=== PATIENT | male | born 1965 | race African-American/Black ===

== ENCOUNTER 2016-03-30 10:46 | Inpatient (IN) | payer OTHER ==
[2016-03-30 11:24] VITALS: BMI 26.4
--- NOTE | 2016-03-30 12:40 | HP ---
COWS - Scale Resting Pulse: 0= [place] 80 or Below Sweatin=Flushed/Facial Moisture Restless Observation: 3= Extraneous Movement Pupil Size: 2= Moderately Dilated Bone or Joint Aches: 2= Severe Diffuse Aches Runny Nose/ Eye Tearin= Runny Nose/Eyes GI Upset > 30mins: 3= Vomiting/Diarrhea Tremor Observation: 2= Slight Tremor Visible Yawning Observation: 2= >3x During Session Anxiety or Irritability: 2=Irritable/Anxious Goose Flesh Skin: 0=Smooth Skin COWS Score: 20 CIWA Score - CIWA Score Nausea/Vomitin Muscle Tremors: 3 Anxiety: 3 Agitation: 3 Paroxysmal Sweats: 2 Orientation: 0-Oriented Tacttile Disturbances: 2-Mild Itch/Numbness/Burn Auditory Disturbances: 2-Mild Harshness/Frighten Visual Disturbances: 2-Mild Sensitivity Headache: 2-Mild CIWA-Ar Total Score: 22 Admission ROS BHS - HPI Chief Complaint: i need help to stop using heroin and alcohol Allergies/Adverse Reactions: Allergies Allergy/AdvReac Type Severity Reaction Status Date / Time No Known Allergies Allergy Verified 03/30/16 11:58 History of Present Illness: this 50 years old male with heroin and alcohol dependence,withdrawal symptom, last detox 03/06 [facility] not completed htn non compliance type 2 dm no med nicotine dependence longest period of sobriety 5 years Exam Limitations: No Limitations - Ebola screening Have you been sick,other than usual withdrawal symptoms: No - Review of Systems Constitutional: Diaphoresis, Loss of Appetite, Malaise, Night Sweats, Changes in sleep, Weakness, Unintentional Wgt. Loss EENT: reports: Tearing, Nose Congestion Respiratory: reports: No Symptoms reported Cardiac: reports: No Symptoms Reported GI: reports: Diarrhea, Nausea, Vomiting, Abdominal cramping : reports: No Symptoms Reported Musculoskeletal: reports: Back Pain, Joint Pain, Muscle Pain, Joint Stiffness Integumentary: reports: Dryness Neuro: reports: Headache, Tremors Endocrine: reports: No Symptoms Reported Hematology: reports: No Symptoms Reported Psychiatric: reports: No Sypmtoms Reported Patient History - Patient Medical History Hx Anemia: No Hx Asthma: No Hx Chronic Obstructive Pulmonary Disease (COPD): No Hx Cancer: No Hx Cardiac Disorders: No Hx Congestive Heart Failure: No Hx Hypertension: Yes (non compliance) Hx Hypercholesterolemia: No Hx Pacemaker: No HX Cerebrovascular Accident: No Hx Seizures: No Hx Dementia: No Hx Diabetes: Yes ([id number]) Hx Gastrointestinal Disorders: No Hx Liver Disease: No Hx Genitourinary Disorders: No Hx Sexually Transmitted Disorders: No Hx Renal Disease (ESRD): No Hx Thyroid Disease: No Hx Human Immunodeficiency Virus (HIV): No Hx Hepatitis C: Yes (no treatment) Hx Depression: No Hx Suicide Attempt: No Hx Bipolar Disorder: No Hx Schizophrenia: No Other Medical History: no suicidal,no homicidal,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 - Patient Surgical History Past Surgical History: Yes Hx Neurologic Surgery: No Hx Cataract Extraction: No Hx Cardiac Surgery: No Hx Lung Surgery: No Hx Breast Surgery: No Hx Breast Biopsy: No Hx Abdominal Surgery: No Hx Appendectomy: No Hx Cholecystectomy: No Hx Genitourinary Surgery: No Hx Section: No Hx Orthopedic Surgery: Yes (left hip replacement in 1991 and 2011) Anesthesia Reaction: No - PPD History Previous Implant?: Yes Documented Results: Negative w/proof Implanted On Prior [facility] Admission?: Yes Date: 08/07/12 Results: 0 MM PPD to be Administered?: Yes - Smoking Cessation Smoking history: Current every day smoker Have you smoked in the past 12 months: Yes Aproximately how many cigarettes per day: 6 Cigars Per Day: 0 Hx Chewing Tobacco Use: No Initiated information on smoking cessation: Yes 'Breaking Loose' booklet given: 03/30/16 - Substance & Tx. History Hx Alcohol Use: Yes Hx Substance Use: Yes Substance Use Type: Alcohol, Heroin Hx Substance Use Treatment: Yes ([facility] 03/06 not completed) - Substances Abused Alcohol Route: Oral Frequency: 3-6 times per week Amount used: Remme Cesar(1 pint) Age of first use: 17 Date of Last Use: 03/29/16 Heroin Route: Inhalation Frequency: Daily Amount used: 10 -15 bags Age of first use: 17 Date of Last Use: 03/28/16 Cocaine Route: Smoking Frequency: Daily Amount used: $100 Age of first use: 17 Date of Last Use: 03/29/16 Family Disease History - Family Disease History Family History: Denies Admission Physical Exam BHS - Vital Signs Vital Signs: Vital Signs - 24 hr 03/30/16 11:22 Temperature 97.4 F L Pulse Rate 77 Respiratory 18 Rate Blood Pressure 160/103 - Physical General Appearance: Yes: Moderate Distress, Alcohol on Breath, Intoxicated, Tremorous, Irritable, Sweating, Anxious HEENTM: Yes: Nasal Congestion, Rhinorrhea Respiratory: Yes: Lungs Clear Neck: Yes: Within Normal Limits Breast: Yes: Within Normal Limits Cardiology: Yes: Within Normal Limits, Regular Rhythm, Regular Rate, S1, S2 Abdominal: Yes: Within Normal Limits, Normal Bowel Sounds, Non Tender, Flat, Soft Genitourinary: Yes: Within Normal Limits Back: Yes: Muscle Spasm Musculoskeletal: Yes: Back pain, Joint Stiffness, Muscle Pain Extremities: Yes: Tremors, Other (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) Neurological: Yes: traditional chinese herbalist II-XII NML intact, Fully Oriented, Alert, Motor Strength 5/5 Integumentary: Yes: Dry Lymphatic: Yes: Within Normal Limits - Diagnostic (1) Opioid dependence with withdrawal Current Visit: Yes Status: Acute (2) Alcohol dependence with uncomplicated withdrawal Current Visit: Yes Status: Acute (3) Cocaine dependence Current Visit: No Status: Active (4) Essential hypertension Current Visit: No Status: Active (5) S/P HIP REPLACEMENT Current Visit: No Status: Active (6) DM2 (diabetes mellitus, type 2) Current Visit: Yes Status: Acute Cleared for Admission [facility] - Detox or Rehab [facility] Level of Care: Medically Managed Detox Regimen/Protocol: Methadone/Librium [facility] Breath Alcohol Content Breath Alcohol Content: 0 Urine Drug Screen - Results Drug Screen Negative: No Urine Drug Screen Results: JAGJIT-Cocaine, OPI-Opiates, MDMA-Ecstasy, BZO- Benzodiazepines, TCA-Tricyclic Antidepress
[2016-03-30] MEDS ORDERED: LOPERAMIDE HCL 2 MG CAPSULE PO PRN (12:54)
[2016-03-30] MEDS ORDERED: chlordiazePOXIDE HCL 25 MG CAPSULE PO PRN (12:54)
[2016-03-30] MEDS ORDERED: P-EPHED 60MG/TRIPROLIDI 2.5MG TABLET PO PRN (12:54)
[2016-03-30] MEDS ORDERED: MAG HYDROX/AL HYDROX/SIMETH 30 ML UNIT-DOSE CUP PO PRN (12:54)
[2016-03-30] MEDS ORDERED: guaiFENesin/D-METHORPHAN HB 10 ML UNIT-DOSE CUPS PO PRN (12:54)
[2016-03-30] MEDS ORDERED: MENTHOL/PHENOL 1 EACH UD MM PRN (12:54)
[2016-03-30] MEDS ORDERED: MAGNESIUM CITRATE 300 ML BOTTLE PO PRN (12:54)
[2016-03-30] MEDS ORDERED: ACETAMINOPHEN 325 MG TABLET (FP) PO PRN (12:54)
[2016-03-30] MEDS ORDERED: MAGNESIUM HYDROX 2400MG/30ML ORAL SUSPENSION 30 ML CUP PO PRN (12:54)
[2016-03-30] MEDS ORDERED: chlordiazePOXIDE HCL 25 MG CAPSULE PO ONE (14:03)
[2016-03-30] MEDS ORDERED: METHADONE HCL 10 MG TABLET (FOR DETOX USE ONLY) PO ONE ×2 (14:05→23:00)
[2016-03-30] MEDS: ENALAPRIL MALEATE 5 MG TABLET (FP) PO SCH (14:25)
[2016-03-30] MEDS: HYDROCHLOROTHIAZIDE 25 MG TABLET (FP) PO SCH (14:26)
[2016-03-30 16:31] LABS: URINE APPEARANCE CLEAR; URINE BILIRUBIN NEGATIVE (NEGATIVE); URINE BLOOD NEGATIVE (NEGATIVE); URINE COLOR YELLOW; URINE GLUCOSE (UA) 2+ (NEGATIVE); URINE KETONE NEGATIVE (NEGATIVE); URINE LEUK ESTERASE NEGATIVE (NEGATIVE); URINE NITRITE NEGATIVE (NEGATIVE); URINE PROTEIN NEGATIVE (NEGATIVE); URINE UROBILINOGEN NEGATIVE E.U./dl (0.2-1.0)
[2016-03-30] MEDS: chlordiazePOXIDE HCL 25 MG CAPSULE PO SCH ×2 (17:02→22:26)
[2016-03-30] MEDS: THIAMINE HCL 100 MG TABLET (FP) PO SCH (22:26)
[2016-03-30] MEDS: cloNIDine HCL 0.1 MG TABLET PO SCH (22:26)
[2016-03-30] MEDS: diphenhydrAMINE HCL 50 MG CAPSULE PO PRN (22:27)
[2016-03-31] MEDS: chlordiazePOXIDE HCL 25 MG CAPSULE PO SCH ×4 (05:48→22:20)
[2016-03-31] MEDS ORDERED: METHADONE HCL 10 MG TABLET (FOR DETOX USE ONLY) PO SCH (10:00)
[2016-03-31 10:02] LABS: MCH 30.2 pg (25.7-33.7); MCHC 33.3 g/dl (32.0-35.9); MEAN CELL VOLUME 90.6 fl (80-96); MEAN PLT VOLUME 7.4 fl (7.5-11.1); PLATELET COUNT 263 K/MM3 (134-434); RDW 13.5 % (11.9-15.9); WHITE BLOOD COUNT 5.2 K/mm3 (4.0-10.0)
[2016-03-31] MEDS: HYDROCHLOROTHIAZIDE 25 MG TABLET (FP) PO SCH (10:44)
[2016-03-31] MEDS: PRENATAL VITAMINS W/ FOLIC ACID TABLET (FP) PO SCH (10:44)
[2016-03-31] MEDS: cloNIDine HCL 0.1 MG TABLET PO SCH ×2 (10:44→22:20)
[2016-03-31] MEDS: ENALAPRIL MALEATE 5 MG TABLET (FP) PO SCH (10:44)
--- NOTE | 2016-03-31 10:44 | PN ---
[facility] CIWA - CIWA Score Nausea/Vomitin Muscle Tremors: 3 Anxiety: 3 Agitation: 2 Paroxysmal Sweats: 1-Minimal Palms Moist Orientation: 0-Oriented Tacttile Disturbances: 1-Very Mild Itch/Numbness Auditory Disturbances: 1-Very Mild Visual Disturbances: 1-Very Mild Sensitivity Headache: 2-Mild CIWA-Ar Total Score: 17 BHS COWS - Scale Resting Pulse: 1= [place] 81-100 Sweatin= Chills/Flushing Restless Observation: 3= Extraneous Movement Pupil Size: 1= Pupils >than Normal Bone or Joint Aches: 2= Severe Diffuse Aches Runny Nose/ Eye Tearin= Runny Nose/Eyes GI Upset > 30mins: 2= Nausea/Diarrhea Tremor Observation of Outstretched Hands: 2= Slight Tremor Visible Yawning Observation: 1= 1-2x During Session Anxiety or Irritability: 2=Irritable/Anxious Goose Flesh Skin: 0=Smooth Skin COWS Score: 17 [facility] Progress Note (SOAP) Subjective: ALERT,IRRITABLE,ANXIOUS,INTERRUPTED SLEEP,PAIN IN THE BODY AND BACK,TREMOR Objective: 03/31/16 10:42 Vital Signs Temperature 98.1 F 03/31/16 09:41 Pulse Rate 94 H 03/31/16 09:41 Respiratory Rate 20 03/31/16 09:41 Blood Pressure 133/77 03/31/16 09:41 O2 Sat by Pulse Oximetry (%) Laboratory Last Values WBC 5.2 K/mm3 (4.0-10.0) D 03/31/16 06:00 RBC 4.20 M/mm3 (4.00-5.60) 03/31/16 06:00 Hgb 12.7 GM/dL (11.7-16.9) 03/31/16 06:00 Hct 38.0 % (35.4-49) 03/31/16 06:00 MCV 90.6 fl (80-96) 03/31/16 06:00 MCHC 33.3 g/dl (32.0-35.9) 03/31/16 06:00 RDW 13.5 % (11.9-15.9) 03/31/16 06:00 Plt Count 263 K/MM3 (134-434) D 03/31/16 06:00 MPV 7.4 fl (7.5-11.1) L 03/31/16 06:00 Sodium 142 mmol/L (136-145) 03/31/16 06:00 Potassium 3.7 mmol/L (3.5-5.1) 03/31/16 06:00 Chloride 104 mmol/L (98-107) 03/31/16 06:00 POC Glucometer 299 UNITS (()) 03/31/16 05:47 Urine Color Yellow 03/30/16 15:00 Urine Appearance Clear 03/30/16 15:00 Urine pH 6.0 (5.0-8.0) 03/30/16 15:00 Ur Specific [place] 1.025 (1.001-1.035) 03/30/16 15:00 Urine Protein Negative (NEGATIVE) 03/30/16 15:00 Urine Glucose (UA) 2+ (NEGATIVE) H 03/30/16 15:00 Urine Ketones Negative (NEGATIVE) 03/30/16 15:00 Urine Blood Negative (NEGATIVE) 03/30/16 15:00 Urine Nitrite Negative (NEGATIVE) 03/30/16 15:00 Urine Bilirubin Negative (NEGATIVE) 03/30/16 15:00 Urine Urobilinogen Negative E.U./dl (0.2-1.0) 03/30/16 15:00 Ur Leukocyte Esterase Negative (NEGATIVE) 03/30/16 15:00 LABS PENDING Assessment: 03/31/16 10:43 WITHDRAWAL SYMPTOM Plan: CONTINUE DETOX
[2016-03-31 10:49] LABS: HIV 1 & 2 AB NEGATIVE; HIV 1 AGp24 NEGATIVE
[2016-03-31 10:56] LABS: ALBUMIN 3.4 g/dl (3.4-5.0); ALK PHOS 71 U/L (45-117); ANION GAP 9 (8-16); BILIRUBIN,TOTAL 0.3 mg/dL (0.2-1.0); CALCIUM 8.6 mg/dL (8.5-10.1); CO2 29 mmol/L (21-32); CREATININE 1.2 mg/dL (0.7-1.3); GLUCOSE,RANDOM 122 mg/dL (74-106); SGOT/AST 28 U/L (15-37); SGPT/ALT 47 U/L (12-78); TOT PROT 6.4 g/dl (6.4-8.2)
[2016-03-31 14:16] LABS: URINE APPEARANCE CLEAR; URINE BILIRUBIN NEGATIVE (NEGATIVE); URINE BLOOD NEGATIVE (NEGATIVE); URINE COLOR LT. YELLOW; URINE GLUCOSE (UA) NEGATIVE (NEGATIVE); URINE KETONE NEGATIVE (NEGATIVE); URINE LEUK ESTERASE NEGATIVE (NEGATIVE); URINE NITRITE NEGATIVE (NEGATIVE); URINE PROTEIN NEGATIVE (NEGATIVE); URINE UROBILINOGEN 0.2 E.U/dl E.U./dl (0.2-1.0)
[2016-03-31] MEDS: INSULIN SLIDING SCALE (NOVOLOG) 1 VIAL SQ SCH (16:46)
[2016-03-31] MEDS: diphenhydrAMINE HCL 50 MG CAPSULE PO PRN (22:20)
[2016-03-31] MEDS: THIAMINE HCL 100 MG TABLET (FP) PO SCH (22:20)
[2016-04-01] MEDS: chlordiazePOXIDE HCL 25 MG CAPSULE PO SCH ×2 (05:37→10:24)
[2016-04-01] MEDS: INSULIN SLIDING SCALE (NOVOLOG) 1 VIAL SQ SCH (06:40)
--- NOTE | 2016-04-01 09:46 | EKG ---
Test Reason : Blood Pressure : / mmHG Vent. Rate : 064 BPM Atrial Rate : 064 BPM P-R Int : 122 ms QRS Dur : 090 ms QT Int : 458 ms P-R-T Axes : -31 025 037 degrees QTc Int : 472 ms UNUSUAL P AXIS, POSSIBLE ECTOPIC ATRIAL RHYTHM ABNORMAL ECG NO PREVIOUS ECGS AVAILABLE Confirmed by HUGH LAMB MD ([id number]) on 04/01/2016 9:45:44 AM Referred By: Confirmed By:HUGH LAMB MD
--- NOTE | 2016-04-01 10:15 | PN ---
[facility] CIWA - CIWA Score Nausea/Vomitin Muscle Tremors: 3 Anxiety: 3 Agitation: 2 Paroxysmal Sweats: 1-Minimal Palms Moist Orientation: 0-Oriented Tacttile Disturbances: 1-Very Mild Itch/Numbness Auditory Disturbances: 1-Very Mild Visual Disturbances: 1-Very Mild Sensitivity Headache: 2-Mild CIWA-Ar Total Score: 17 BHS COWS - Scale Resting Pulse: 0= [place] 80 or Below Sweatin= Chills/Flushing Restless Observation: 3= Extraneous Movement Pupil Size: 1= Pupils >than Normal Bone or Joint Aches: 2= Severe Diffuse Aches Runny Nose/ Eye Tearin= Runny Nose/Eyes GI Upset > 30mins: 2= Nausea/Diarrhea Tremor Observation of Outstretched Hands: 2= Slight Tremor Visible Yawning Observation: 1= 1-2x During Session Anxiety or Irritability: 2=Irritable/Anxious Goose Flesh Skin: 0=Smooth Skin COWS Score: 16 S Progress Note (SOAP) Subjective: ALERT,IRRITABLE,ANXIOUS,INTERRUPTED SLEEP,TREMOR,PAIN IN THE BODY AND BACK Objective: 04/01/16 10:14 Vital Signs Temperature 97.1 F L 04/01/16 09:52 Pulse Rate 75 04/01/16 09:52 Respiratory Rate 20 04/01/16 09:52 Blood Pressure 113/63 04/01/16 09:52 O2 Sat by Pulse Oximetry (%) Laboratory Last Values WBC 5.2 K/mm3 (4.0-10.0) D 03/31/16 06:00 RBC 4.20 M/mm3 (4.00-5.60) 03/31/16 06:00 Hgb 12.7 GM/dL (11.7-16.9) 03/31/16 06:00 Hct 38.0 % (35.4-49) 03/31/16 06:00 MCV 90.6 fl (80-96) 03/31/16 06:00 MCHC 33.3 g/dl (32.0-35.9) 03/31/16 06:00 RDW 13.5 % (11.9-15.9) 03/31/16 06:00 Plt Count 263 K/MM3 (134-434) D 03/31/16 06:00 MPV 7.4 fl (7.5-11.1) L 03/31/16 06:00 Sodium 142 mmol/L (136-145) 03/31/16 06:00 Potassium 3.7 mmol/L (3.5-5.1) 03/31/16 06:00 Chloride 104 mmol/L (98-107) 03/31/16 06:00 Carbon Dioxide 29 mmol/L (21-32) 03/31/16 06:00 Anion Gap 9 (8-16) 03/31/16 06:00 BUN 14 mg/dL (7-18) 03/31/16 06:00 Creatinine 1.2 mg/dL (0.7-1.3) 03/31/16 06:00 Creat Clearance w eGFR > 60 (>60) 03/31/16 06:00 POC Glucometer 127 UNITS (()) 04/01/16 05:39 Random Glucose 122 mg/dL (74-106) H D 03/31/16 06:00 Calcium 8.6 mg/dL (8.5-10.1) 03/31/16 06:00 Total Bilirubin 0.3 mg/dL (0.2-1.0) 03/31/16 06:00 AST 28 U/L (15-37) 03/31/16 06:00 ALT 47 U/L (12-78) 03/31/16 06:00 Alkaline Phosphatase 71 U/L (45-117) 03/31/16 06:00 Total Protein 6.4 g/dl (6.4-8.2) 03/31/16 06:00 Albumin 3.4 g/dl (3.4-5.0) 03/31/16 06:00 Urine Color Lt. yellow 03/31/16 11:00 Urine Appearance Clear 03/31/16 11:00 Urine pH 6.0 (5.0-8.0) 03/31/16 11:00 Ur Specific [place] 1.015 (1.001-1.035) 03/31/16 11:00 Urine Protein Negative (NEGATIVE) 03/31/16 11:00 Urine Glucose (UA) Negative (NEGATIVE) 03/31/16 11:00 Urine Ketones Negative (NEGATIVE) 03/31/16 11:00 Urine Blood Negative (NEGATIVE) 03/31/16 11:00 Urine Nitrite Negative (NEGATIVE) 03/31/16 11:00 Urine Bilirubin Negative (NEGATIVE) 03/31/16 11:00 Urine Urobilinogen 0.2 e.u/dl E.U./dl (0.2-1.0) 03/31/16 11:00 Ur Leukocyte Esterase Negative (NEGATIVE) 03/31/16 11:00 RPR Titer Nonreactive (NONREACTIVE) 03/31/16 06:00 HIV 1&2 Antibody Screen Negative 03/30/16 15:00 HIV P24 Antigen Negative 03/30/16 15:00 Assessment: 04/01/16 10:15 WITHDRAWAL SYMPTOM Plan: CONTINUE DETOX,BGM MONITORING
[2016-04-01] MEDS: PRENATAL VITAMINS W/ FOLIC ACID TABLET (FP) PO SCH (10:24)
[2016-04-01] MEDS: cloNIDine HCL 0.1 MG TABLET PO SCH ×2 (10:24→23:05)
[2016-04-01] MEDS: METHADONE HCL 5 MG TABLET (FOR DETOX USE ONLY) PO SCH (10:24)
[2016-04-01] MEDS: HYDROCHLOROTHIAZIDE 25 MG TABLET (FP) PO SCH (10:24)
[2016-04-01] MEDS: ENALAPRIL MALEATE 5 MG TABLET (FP) PO SCH (10:24)
[2016-04-01] MEDS ORDERED: INSULIN (NOVOLOG) ASPART 100 UNITS/ML 10ML VIAL ONE (16:42)
[2016-04-01] MEDS: chlordiazePOXIDE 5 MG CAPSULE PO SCH ×2 (17:53→23:04)
[2016-04-01] MEDS: THIAMINE HCL 100 MG TABLET (FP) PO SCH (23:05)
[2016-04-01] MEDS: IBUPROFEN 400 MG TABLET (FP) PO PRN (23:06)
[2016-04-02] MEDS: INSULIN SLIDING SCALE (NOVOLOG) 1 VIAL SQ SCH ×3 (00:08→16:55)
[2016-04-02] MEDS: chlordiazePOXIDE 5 MG CAPSULE PO SCH ×2 (06:23→11:02)
--- NOTE | 2016-04-02 10:38 | PN ---
BHS Progress Note (SOAP) Subjective: ALERT,IRRITABLE,ANXIOUS,INTERRUPTED SLEEP,TREMOR Objective: 04/02/16 10:38 Vital Signs Temperature 97.0 F L 04/02/16 10:24 Pulse Rate 92 H 04/02/16 10:24 Respiratory Rate 20 04/02/16 10:24 Blood Pressure 125/82 04/02/16 10:24 O2 Sat by Pulse Oximetry (%) Assessment: 04/02/16 10:38 WITHDRAWAL SYMPTOM Plan: CONTINUE DETOX
[2016-04-02] MEDS: cloNIDine HCL 0.1 MG TABLET PO SCH ×2 (11:01→22:50)
[2016-04-02] MEDS: PRENATAL VITAMINS W/ FOLIC ACID TABLET (FP) PO SCH (11:01)
[2016-04-02] MEDS: METHADONE HCL 5 MG TABLET (FOR DETOX USE ONLY) PO SCH (11:02)
[2016-04-02] MEDS: HYDROCHLOROTHIAZIDE 25 MG TABLET (FP) PO SCH (11:03)
[2016-04-02] MEDS: ENALAPRIL MALEATE 5 MG TABLET (FP) PO SCH (11:03)
[2016-04-02] MEDS: chlordiazePOXIDE HCL 10 MG CAPSULE PO SCH ×2 (18:03→22:49)
[2016-04-02] MEDS: THIAMINE HCL 100 MG TABLET (FP) PO SCH (22:49)
[2016-04-03] MEDS: chlordiazePOXIDE HCL 10 MG CAPSULE PO SCH ×2 (05:21→10:40)
[2016-04-03] MEDS: INSULIN SLIDING SCALE (NOVOLOG) 1 VIAL SQ SCH ×2 (06:34→16:45)
[2016-04-03] MEDS ORDERED: METHADONE HCL 10 MG TABLET (FOR DETOX USE ONLY) PO SCH (10:00)
[2016-04-03] MEDS: cloNIDine HCL 0.1 MG TABLET PO SCH ×2 (10:40→22:54)
[2016-04-03] MEDS: ENALAPRIL MALEATE 5 MG TABLET (FP) PO SCH (10:40)
[2016-04-03] MEDS: HYDROCHLOROTHIAZIDE 25 MG TABLET (FP) PO SCH (10:40)
[2016-04-03] MEDS: PRENATAL VITAMINS W/ FOLIC ACID TABLET (FP) PO SCH (10:41)
--- NOTE | 2016-04-03 12:44 | PN ---
BHS Progress Note (SOAP) Subjective: SWEATING,INTERRUPTED SLEEP,RESTLESS Objective: 04/03/16 12:43 Vital Signs - 8 hr 04/03/16 04/03/16 06:31 09:45 Temperature 97.8 F 97.0 F L Pulse Rate 69 84 Respiratory 18 19 Rate Blood Pressure 123/80 132/90 Laboratory Last Values WBC 5.2 K/mm3 (4.0-10.0) D 03/31/16 06:00 RBC 4.20 M/mm3 (4.00-5.60) 03/31/16 06:00 Hgb 12.7 GM/dL (11.7-16.9) 03/31/16 06:00 Hct 38.0 % (35.4-49) 03/31/16 06:00 MCV 90.6 fl (80-96) 03/31/16 06:00 MCHC 33.3 g/dl (32.0-35.9) 03/31/16 06:00 RDW 13.5 % (11.9-15.9) 03/31/16 06:00 Plt Count 263 K/MM3 (134-434) D 03/31/16 06:00 MPV 7.4 fl (7.5-11.1) L 03/31/16 06:00 Sodium 142 mmol/L (136-145) 03/31/16 06:00 Potassium 3.7 mmol/L (3.5-5.1) 03/31/16 06:00 Chloride 104 mmol/L (98-107) 03/31/16 06:00 Carbon Dioxide 29 mmol/L (21-32) 03/31/16 06:00 Anion Gap 9 (8-16) 03/31/16 06:00 BUN 14 mg/dL (7-18) 03/31/16 06:00 Creatinine 1.2 mg/dL (0.7-1.3) 03/31/16 06:00 Creat Clearance w eGFR > 60 (>60) 03/31/16 06:00 POC Glucometer 127 UNITS (()) 04/03/16 05:22 Random Glucose 122 mg/dL (74-106) H D 03/31/16 06:00 Calcium 8.6 mg/dL (8.5-10.1) 03/31/16 06:00 Total Bilirubin 0.3 mg/dL (0.2-1.0) 03/31/16 06:00 AST 28 U/L (15-37) 03/31/16 06:00 ALT 47 U/L (12-78) 03/31/16 06:00 Alkaline Phosphatase 71 U/L (45-117) 03/31/16 06:00 Total Protein 6.4 g/dl (6.4-8.2) 03/31/16 06:00 Albumin 3.4 g/dl (3.4-5.0) 03/31/16 06:00 Urine Color Lt. yellow 03/31/16 11:00 Urine Appearance Clear 03/31/16 11:00 Urine pH 6.0 (5.0-8.0) 03/31/16 11:00 Ur Specific [place] 1.015 (1.001-1.035) 03/31/16 11:00 Urine Protein Negative (NEGATIVE) 03/31/16 11:00 Urine Glucose (UA) Negative (NEGATIVE) 03/31/16 11:00 Urine Ketones Negative (NEGATIVE) 03/31/16 11:00 Urine Blood Negative (NEGATIVE) 03/31/16 11:00 Urine Nitrite Negative (NEGATIVE) 03/31/16 11:00 Urine Bilirubin Negative (NEGATIVE) 03/31/16 11:00 Urine Urobilinogen 0.2 e.u/dl E.U./dl (0.2-1.0) 03/31/16 11:00 Ur Leukocyte Esterase Negative (NEGATIVE) 03/31/16 11:00 RPR Titer Nonreactive (NONREACTIVE) 03/31/16 06:00 HIV 1&2 Antibody Screen Negative 03/30/16 15:00 HIV P24 Antigen Negative 03/30/16 15:00 LABS NOTED Assessment: 04/03/16 12:43 WITHDRAWAL SX. Plan: CONTINUE DETOX
[2016-04-03] MEDS: THIAMINE HCL 100 MG TABLET (FP) PO SCH (22:54)
[2016-04-03] MEDS: diphenhydrAMINE HCL 50 MG CAPSULE PO PRN (22:54)
[2016-04-04] MEDS ORDERED: METHADONE HCL 5 MG TABLET (FOR DETOX USE ONLY) PO SCH (06:00)
[2016-04-04] MEDS: INSULIN SLIDING SCALE (NOVOLOG) 1 VIAL SQ SCH ×2 (06:27→16:52)
--- NOTE | 2016-04-04 08:49 | DS ---
[facility] Detox Discharge Summary Admission Date: 03/30/16 Discharge Date: 04/04/16 - History Present History: Alcohol Dependence, Cocaine Dependence Pertinent Past History: see below - Physical Exam Results Vital Signs: Vital Signs Temperature 98.0 F 04/04/16 06:33 Pulse Rate 71 04/04/16 06:33 Respiratory Rate 18 04/04/16 06:33 Blood Pressure 123/83 04/04/16 06:33 O2 Sat by Pulse Oximetry (%) Pertinent Admission Physical Exam Findings: admitted in acute withdrawal medically stable on dc detox completed dc today - Treatment Hospital Course: Detox Protocol Followed, Detoxed Safely, Responded well, Discharged Condition Good, Rehab Referral Accepted - Medication Discharge Medications: Ambulatory Orders Enalapril Maleate [Vasotec -] 5 mg PO DAILY 07/27/11 Hydrochlorothiazide 25 mg PO DAILY 07/27/11 - Diagnosis (1) Alcohol dependence with uncomplicated withdrawal Current Visit: Yes Status: Acute (2) DM2 (diabetes mellitus, type 2) Current Visit: Yes Status: Chronic (3) Opioid dependence with withdrawal Current Visit: Yes Status: Acute (4) Alcohol dependence Current Visit: Yes Status: Chronic (5) Cocaine dependence Current Visit: Yes Status: Active (6) Essential hypertension Current Visit: Yes Status: Active (7) S/P HIP REPLACEMENT Current Visit: Yes Status: Resolved - AMA Did Patient Leave Against Medical Advice: No
[2016-04-04] MEDS: cloNIDine HCL 0.1 MG TABLET PO SCH ×2 (10:29→21:32)
[2016-04-04] MEDS: HYDROCHLOROTHIAZIDE 25 MG TABLET (FP) PO SCH (10:29)
[2016-04-04] MEDS: ENALAPRIL MALEATE 5 MG TABLET (FP) PO SCH (10:29)
[2016-04-04] MEDS: PRENATAL VITAMINS W/ FOLIC ACID TABLET (FP) PO SCH (10:29)
[2016-04-04] MEDS: THIAMINE HCL 100 MG TABLET (FP) PO SCH (21:32)
[2016-04-04] MEDS: diphenhydrAMINE HCL 50 MG CAPSULE PO PRN (21:33)
[2016-04-05] MEDS: INSULIN SLIDING SCALE (NOVOLOG) 1 VIAL SQ SCH ×2 (06:23→16:43)
[2016-04-05] MEDS: ENALAPRIL MALEATE 5 MG TABLET (FP) PO SCH (10:16)
[2016-04-05] MEDS: PRENATAL VITAMINS W/ FOLIC ACID TABLET (FP) PO SCH (10:16)
[2016-04-05] MEDS: HYDROCHLOROTHIAZIDE 25 MG TABLET (FP) PO SCH (10:16)
[2016-04-05] MEDS: cloNIDine HCL 0.1 MG TABLET PO SCH ×2 (10:16→21:25)
[2016-04-05] MEDS: IBUPROFEN 400 MG TABLET (FP) PO PRN (12:11)
[2016-04-05] MEDS: CYCLOBENZAPRINE HCL 10 MG TABLET (FP) PO PRN (12:11)
[2016-04-05] MEDS: THIAMINE HCL 100 MG TABLET (FP) PO SCH (21:25)
[2016-04-05] MEDS: diphenhydrAMINE HCL 50 MG CAPSULE PO PRN (21:26)
[2016-04-06] MEDS: INSULIN SLIDING SCALE (NOVOLOG) 1 VIAL SQ SCH ×2 (06:16→17:05)
[2016-04-06] MEDS: PRENATAL VITAMINS W/ FOLIC ACID TABLET (FP) PO SCH (10:01)
[2016-04-06] MEDS: HYDROCHLOROTHIAZIDE 25 MG TABLET (FP) PO SCH (10:01)
[2016-04-06] MEDS: ENALAPRIL MALEATE 5 MG TABLET (FP) PO SCH (10:01)
[2016-04-06] MEDS: cloNIDine HCL 0.1 MG TABLET PO SCH ×2 (10:01→21:41)
[2016-04-06] MEDS: CYCLOBENZAPRINE HCL 10 MG TABLET (FP) PO PRN (10:02)
[2016-04-06] MEDS: IBUPROFEN 400 MG TABLET (FP) PO PRN (10:02)
--- NOTE | 2016-04-06 15:18 | HP ---
Psychiatrist Admission - Data Date of interview: 04/06/16 Admission source: 3n Identifying data: This is the first 5N inpatient rehabilitation admission for this 50 year old single black male on SSI currently homeless. Medical History: HTN, Diabetes,. 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 (ambulates with unsteady gait with the cane) . Smokes cigarettes 3-4 a day. Psychiatric History: Denies history of sexual, physical and verbal abuse. Physical/Sexual Abuse/Trauma History: Denies history of psychiatric treatment. Vital Signs: Vital Signs - 24 hr 04/05/16 04/06/16 04/06/16 21:29 03:03 03:18 Temperature Pulse Rate 92 H 92 H 88 Respiratory 18 18 Rate Blood Pressure 127/83 04/06/16 04/06/16 04/06/16 05:30 07:18 09:05 Temperature 98.3 F Pulse Rate 76 97 H Respiratory 18 18 Rate Blood Pressure 138/83 137/80 Allergies/Adverse Reactions: Allergies Allergy/AdvReac Type Severity Reaction Status Date / Time No Known Allergies Allergy Verified 04/04/16 11:53 Concur with the findings of this exam: Yes - Substance Abuse/Tx History Hx Alcohol Use: Yes Hx Substance Use: Yes Substance Use Type: Alcohol (remee melissa daily ), Cocaine ($100 daily ), Heroin (10 bags a day) Hx Substance Use Treatment: Yes ([facility] not completed) - Admission Criteria Previous failed treatment: Yes Poor recovery environment: Yes Comorbidities: No Lacks judgement: Yes Mental Status Exam - Mental Status Exam Alert and Oriented to: Time, Place, Person Cognitive Function: Good Patient Appearance: Well Groomed Mood: Hopeful Affect: Appropriate, Mood Congruent Patient Behavior: Appropriate, Cooperative Speech Pattern: Clear, Appropriate Voice Loudness: Normal Thought Process: Intact, Goal Oriented Thought Disorder: Not Present Hallucinations: Denies Suicidal Ideation: Denies Homicidal Ideation: Denies Insight/Judgement: Fair Sleep: Fair Appetite: Fair Muscle strength/Tone: Normal Gait/Station: Other (unstady gait, uses cane) Psychiatric Findings - Problem List ([place] 1, 2,3) (1) Cocaine dependence Current Visit: Yes Status: Active (2) Essential hypertension Current Visit: Yes Status: Active (3) Alcohol dependence Current Visit: Yes Status: Chronic (4) Opioid dependence Current Visit: No Status: Active Comment: \. - Initial Treatment Plan Initial Treatment Plan: will monitor progress as needed
[2016-04-06] MEDS ORDERED: INSULIN (NOVOLOG) ASPART 100 UNITS/ML 10ML VIAL ONE (17:06)
[2016-04-06] MEDS: THIAMINE HCL 100 MG TABLET (FP) PO SCH (21:39)
[2016-04-06] MEDS: hydrOXYzine PAMOATE 50 MG CAPSULE (FP) PO PRN (21:42)
[2016-04-07] MEDS: INSULIN SLIDING SCALE (NOVOLOG) 1 VIAL SQ SCH ×2 (06:32→16:50)
[2016-04-07] MEDS: HYDROCHLOROTHIAZIDE 25 MG TABLET (FP) PO SCH (10:37)
[2016-04-07] MEDS: cloNIDine HCL 0.1 MG TABLET PO SCH ×2 (10:37→21:13)
[2016-04-07] MEDS: ENALAPRIL MALEATE 5 MG TABLET (FP) PO SCH (10:37)
[2016-04-07] MEDS: PRENATAL VITAMINS W/ FOLIC ACID TABLET (FP) PO SCH (10:37)
[2016-04-07] MEDS ORDERED: LIDOCAINE 5% TOPICAL PATCH TP ONE (14:14)
--- NOTE | 2016-04-07 14:25 | PN ---
Psychiatric Progress Note Vital Signs: Vital Signs Period Temp Pulse Resp BP Sys/Pinon Pulse Ox Last 24 Hr 97.9 F 76 18-18 133/78 Date of Session: 04/07/16 Chief Complaint:: UNABLE TO SLEEP HPI: patient is addressing alcohol, opioid, cocaine, nicotine dependence. ROS: HTN, Diabetes,. 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 (ambulates with unsteady gait with the cane) Current Medications: Active Medications Generic Name Dose Route Start Last Admin Trade Name Freq PRN Reason Stop Dose Admin Acetaminophen 650 mg 03/30/16 12:54 Tylenol - PO Q4H PRN FEVER OR PAIN Al Hydroxide/Mg Hydroxide 30 ml 03/30/16 12:54 Mylanta Oral Suspension - PO Q6H PRN DYSPEPSIA Clonidine 0.1 mg 03/30/16 22:00 04/07/16 10:37 Catapres - PO 0.1 mg BID AHMET Administration Clotrimazole 1 applic 04/07/16 22:00 Lotrisone Cream (Small Tube) TP BID AHMET Cyclobenzaprine HCl 10 mg 03/30/16 12:59 04/06/16 10:02 Flexeril - PO 10 mg TID PRN Administration MUSCLE SPASMS Diphenhydramine HCl 50 mg 03/30/16 12:54 04/05/16 21:26 Benadryl - PO 50 mg HSMR1 PRN Administration INSOMNIA Enalapril Maleate 5 mg 03/30/16 14:00 04/07/16 10:37 Vasotec - PO 5 mg DAILY AHMET Administration Eucalyptus/Menthol/Phenol/Sorbitol 1 each 03/30/16 12:54 Cepastat Lozenge - MM Q4H PRN SORE THROAT Guaifenesin 10 ml 03/30/16 12:54 Robitussin Dm - PO Q6H PRN COUGH Hydrochlorothiazide 25 mg 03/30/16 14:00 04/07/16 10:37 Hctz - PO 25 mg DAILY AHMET Administration Hydroxyzine Pamoate 50 mg 03/30/16 12:54 04/06/16 21:42 Vistaril - PO 50 mg Q4H PRN Administration AGITATION Ibuprofen 400 mg 03/30/16 12:54 04/06/16 10:02 Motrin - PO 400 mg Q6H PRN Administration SEVERE PAIN Insulin Aspart 1 vial 03/31/16 16:30 04/07/16 06:32 Novolog Vial Sliding Scale - SQ Not Given BIDAC [facility] Protocol Lidocaine 1 patch 04/08/16 10:00 Lidoderm Patch - TP DAILY AHMET Loperamide HCl 4 mg 03/30/16 12:54 Imodium - PO Q6H PRN DIARRHEA Magnesium Citrate 300 ml 03/30/16 12:54 Citroma - PO Q48H PRN CONSTIPATION Magnesium Hydroxide 30 ml 03/30/16 12:54 Milk Of Magnesia - PO DAILY PRN CONSTIPATION Multivit/Folic Acid/Iron 1 tab 03/31/16 10:00 04/07/16 10:37 Vitamins (Sjr) - PO 1 tab DAILY AHMET Administration Pseudoephedrine/Triprolidine 1 combo 03/30/16 12:54 Actifed - PO TID PRN NASAL CONGESTION Thiamine HCl 100 mg 03/30/16 22:00 04/06/16 21:39 Vitamin B1 - PO 100 mg HS AHMET Administration Current Side Effect: No Lab tests ordered: No Lab tests reviewed: Yes Provider note:: Patient reports unable to sleep all night, he states that benryl and vistaril not effective, patient was recommended Remeron, discussed indications and properties of Remeron with the patient he agreed to start. Sleeping hygine also discussed with the patient, will add Remeron, continue to monitor progress. Total face to face time:: 30 Mental Status Exam - Mental Status Exam Alert and Oriented to: Time, Place, Person Cognitive Function: Grossly Intact Patient Appearance: Well Groomed Mood: Sad Affect: Appropriate, Mood Congruent Patient Behavior: Appropriate, Cooperative Speech Pattern: Clear, Appropriate Voice Loudness: Normal Thought Process: Goal Oriented Thought Disorder: Not Present Hallucinations: Denies Suicidal Ideation: Denies Homicidal Ideation: Denies Insight/Judgement: Fair Sleep: Poorly, Difficulty falling asleep Appetite: Fair Muscle strength/Tone: Normal Gait/Station: Normal Psychiatric Treatment Plan - Problem List (1) Cocaine dependence Current Visit: Yes (2) Essential hypertension Current Visit: Yes (3) Alcohol dependence Current Visit: Yes (4) Opioid dependence Current Visit: No Comment: \. (5) Insomnia Current Visit: Yes
[2016-04-07] MEDS: THIAMINE HCL 100 MG TABLET (FP) PO SCH (21:13)
[2016-04-07] MEDS: MIRTAZAPINE 15 MG TABLET (FP) PO SCH (21:13)
[2016-04-07] MEDS: CLOTRIMAZOLE/BETAMET DIPROP 15 GM TUBE TP SCH (21:14)
[2016-04-08] MEDS: INSULIN SLIDING SCALE (NOVOLOG) 1 VIAL SQ SCH ×2 (06:15→16:54)
[2016-04-08] MEDS: cloNIDine HCL 0.1 MG TABLET PO SCH ×2 (10:15→21:22)
[2016-04-08] MEDS: ENALAPRIL MALEATE 5 MG TABLET (FP) PO SCH (10:15)
[2016-04-08] MEDS: PRENATAL VITAMINS W/ FOLIC ACID TABLET (FP) PO SCH (10:15)
[2016-04-08] MEDS: HYDROCHLOROTHIAZIDE 25 MG TABLET (FP) PO SCH (10:16)
[2016-04-08] MEDS: LIDOCAINE 5% TOPICAL PATCH TP SCH (10:16)
[2016-04-08] MEDS: CLOTRIMAZOLE/BETAMET DIPROP 15 GM TUBE TP SCH ×2 (10:17→21:23)
[2016-04-08] MEDS ORDERED: INSULIN (NOVOLOG) ASPART 100 UNITS/ML 10ML VIAL ONE (16:57)
[2016-04-08] MEDS: MIRTAZAPINE 15 MG TABLET (FP) PO SCH (21:22)
[2016-04-08] MEDS: THIAMINE HCL 100 MG TABLET (FP) PO SCH (21:22)
[2016-04-09] MEDS: INSULIN SLIDING SCALE (NOVOLOG) 1 VIAL SQ SCH ×2 (06:27→16:41)
[2016-04-09] MEDS ORDERED: INSULIN (NOVOLOG) ASPART 100 UNITS/ML 10ML VIAL ONE (06:45)
[2016-04-09] MEDS: HYDROCHLOROTHIAZIDE 25 MG TABLET (FP) PO SCH (10:25)
[2016-04-09] MEDS: PRENATAL VITAMINS W/ FOLIC ACID TABLET (FP) PO SCH (10:25)
[2016-04-09] MEDS: LIDOCAINE 5% TOPICAL PATCH TP SCH (10:25)
[2016-04-09] MEDS: cloNIDine HCL 0.1 MG TABLET PO SCH ×2 (10:25→21:08)
[2016-04-09] MEDS: ENALAPRIL MALEATE 5 MG TABLET (FP) PO SCH (10:25)
[2016-04-09] MEDS: CLOTRIMAZOLE/BETAMET DIPROP 15 GM TUBE TP SCH ×2 (10:26→21:09)
[2016-04-09] MEDS: hydrOXYzine PAMOATE 50 MG CAPSULE (FP) PO PRN ×2 (16:49→21:09)
[2016-04-09] MEDS: THIAMINE HCL 100 MG TABLET (FP) PO SCH (21:07)
[2016-04-09] MEDS: MIRTAZAPINE 15 MG TABLET (FP) PO SCH (21:08)
[2016-04-09] MEDS: IBUPROFEN 400 MG TABLET (FP) PO PRN (21:09)
[2016-04-09] MEDS: CYCLOBENZAPRINE HCL 10 MG TABLET (FP) PO PRN (21:09)
[2016-04-10] MEDS: INSULIN SLIDING SCALE (NOVOLOG) 1 VIAL SQ SCH ×2 (07:05→16:54)
[2016-04-10] MEDS: PRENATAL VITAMINS W/ FOLIC ACID TABLET (FP) PO SCH (10:13)
[2016-04-10] MEDS: cloNIDine HCL 0.1 MG TABLET PO SCH ×2 (10:14→21:11)
[2016-04-10] MEDS: ENALAPRIL MALEATE 5 MG TABLET (FP) PO SCH (10:14)
[2016-04-10] MEDS: HYDROCHLOROTHIAZIDE 25 MG TABLET (FP) PO SCH (10:14)
[2016-04-10] MEDS: CLOTRIMAZOLE/BETAMET DIPROP 15 GM TUBE TP SCH ×2 (10:15→21:11)
[2016-04-10] MEDS: LIDOCAINE 5% TOPICAL PATCH TP SCH (10:15)
--- NOTE | 2016-04-10 14:17 | PN ---
Psychiatric Progress Note Vital Signs: Vital Signs Period Temp Pulse Resp BP Sys/Pinon Pulse Ox Last 24 Hr 97.8 F 77-89 18-18 130-143/78-80 Date of Session: 04/10/16 Chief Complaint:: insomnia HPI: patient is addressing alcohol, opioid, cocaine, nicotine dependence comorbid substance induced sleep disorder ROS: HTN, Diabetes,. 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 (ambulates with unsteady gait with the cane) Current Medications: Active Medications Generic Name Dose Route Start Last Admin Trade Name Freq PRN Reason Stop Dose Admin Acetaminophen 650 mg 03/30/16 12:54 Tylenol - PO Q4H PRN FEVER OR PAIN Al Hydroxide/Mg Hydroxide 30 ml 03/30/16 12:54 Mylanta Oral Suspension - PO Q6H PRN DYSPEPSIA Clonidine 0.1 mg 03/30/16 22:00 04/10/16 10:14 Catapres - PO 0.1 mg BID AHMET Administration Clotrimazole 1 applic 04/07/16 22:00 04/10/16 10:15 Lotrisone Cream (Small Tube) TP 1 applic BID AHMET Administration Cyclobenzaprine HCl 10 mg 03/30/16 12:59 04/09/16 21:09 Flexeril - PO 10 mg TID PRN Administration MUSCLE SPASMS Diphenhydramine HCl 50 mg 03/30/16 12:54 04/05/16 21:26 Benadryl - PO 50 mg HSMR1 PRN Administration INSOMNIA Enalapril Maleate 5 mg 03/30/16 14:00 04/10/16 10:14 Vasotec - PO 5 mg DAILY AHMET Administration Eucalyptus/Menthol/Phenol/Sorbitol 1 each 03/30/16 12:54 Cepastat Lozenge - MM Q4H PRN SORE THROAT Guaifenesin 10 ml 03/30/16 12:54 Robitussin Dm - PO Q6H PRN COUGH Hydrochlorothiazide 25 mg 03/30/16 14:00 04/10/16 10:14 Hctz - PO 25 mg DAILY AHMET Administration Hydroxyzine Pamoate 50 mg 03/30/16 12:54 04/09/16 21:09 Vistaril - PO 50 mg Q4H PRN Administration AGITATION Ibuprofen 400 mg 03/30/16 12:54 04/09/16 21:09 Motrin - PO 400 mg Q6H PRN Administration SEVERE PAIN Insulin Aspart 1 vial 03/31/16 16:30 04/10/16 07:05 Novolog Vial Sliding Scale - SQ Not Given BIDAC [facility] Protocol Lidocaine 1 patch 04/08/16 10:00 04/10/16 10:15 Lidoderm Patch - TP 1 patch DAILY AHMET Administration Loperamide HCl 4 mg 03/30/16 12:54 Imodium - PO Q6H PRN DIARRHEA Magnesium Citrate 300 ml 03/30/16 12:54 Citroma - PO Q48H PRN CONSTIPATION Magnesium Hydroxide 30 ml 03/30/16 12:54 Milk Of Magnesia - PO DAILY PRN CONSTIPATION Mirtazapine 15 mg 04/07/16 22:00 04/09/16 21:08 Remeron - PO 15 mg HS AHMET Administration Multivit/Folic Acid/Iron 1 tab 03/31/16 10:00 04/10/16 10:13 Vitamins (Sjr) - PO 1 tab DAILY AHMET Administration Pseudoephedrine/Triprolidine 1 combo 03/30/16 12:54 Actifed - PO TID PRN NASAL CONGESTION Thiamine HCl 100 mg 03/30/16 22:00 04/09/16 21:07 Vitamin B1 - PO 100 mg HS AHMET Administration Medication(s) Change(s): d/c Remeron,add Seroquel 50 mg po hs. Current Side Effect: No Lab tests ordered: No Lab tests reviewed: Yes Provider note:: Patient reports had a panic attack a few days ago, reports that was very fearful, verbalized his that he was using heroin to "relax", he also reports having difficulty at nights, unable to sleep, states remeron not effective, as per patient while in the treatment at [facility] was on Seroquel 100 mg po hs with good responce, side-effects and properties discussed with the patient will d/c remron, start seroquel 50 mg po hs, continue to monitor progress. Total face to face time:: 30 Mental Status Exam - Mental Status Exam Alert and Oriented to: Time, Place, Person Cognitive Function: Good Patient Appearance: Well Groomed Mood: Anxious Affect: Appropriate, Mood Congruent Patient Behavior: Appropriate, Cooperative Speech Pattern: Appropriate Voice Loudness: Normal Thought Process: Intact, Goal Oriented Thought Disorder: Not Present Hallucinations: Denies Suicidal Ideation: Denies Homicidal Ideation: Denies Insight/Judgement: Fair Sleep: Difficulty falling asleep Appetite: Fair Gait/Station: Other Psychiatric Treatment Plan - Problem List (1) Cocaine dependence Current Visit: Yes (2) Essential hypertension Current Visit: Yes (3) Alcohol dependence Current Visit: Yes (4) Opioid dependence Current Visit: No Comment: \\. (5) Insomnia Current Visit: Yes (6) Substance-induced sleep disorder Current Visit: Yes
[2016-04-10] MEDS: QUEtiapine FUMARATE 50 MG TABLET PO SCH (21:11)
[2016-04-10] MEDS: THIAMINE HCL 100 MG TABLET (FP) PO SCH (21:12)
[2016-04-10] MEDS: hydrOXYzine PAMOATE 50 MG CAPSULE (FP) PO PRN (21:13)
[2016-04-11] MEDS: INSULIN SLIDING SCALE (NOVOLOG) 1 VIAL SQ SCH ×2 (06:09→16:49)
[2016-04-11] MEDS ORDERED: PT OWN MED DRAWER 7, Y5N ONE (06:11)
[2016-04-11] MEDS: PRENATAL VITAMINS W/ FOLIC ACID TABLET (FP) PO SCH (10:06)
[2016-04-11] MEDS: HYDROCHLOROTHIAZIDE 25 MG TABLET (FP) PO SCH (10:07)
[2016-04-11] MEDS: ENALAPRIL MALEATE 5 MG TABLET (FP) PO SCH (10:07)
[2016-04-11] MEDS: LIDOCAINE 5% TOPICAL PATCH TP SCH (10:07)
[2016-04-11] MEDS: cloNIDine HCL 0.1 MG TABLET PO SCH ×2 (10:07→21:19)
[2016-04-11] MEDS: CLOTRIMAZOLE/BETAMET DIPROP 15 GM TUBE TP SCH ×2 (10:07→21:19)
[2016-04-11] MEDS: hydrOXYzine PAMOATE 50 MG CAPSULE (FP) PO PRN (10:09)
[2016-04-11] MEDS: diphenhydrAMINE HCL 50 MG CAPSULE PO PRN (21:19)
[2016-04-11] MEDS: THIAMINE HCL 100 MG TABLET (FP) PO SCH (21:19)
[2016-04-11] MEDS: QUEtiapine FUMARATE 50 MG TABLET PO SCH (21:19)
[2016-04-12] MEDS: INSULIN SLIDING SCALE (NOVOLOG) 1 VIAL SQ SCH ×2 (06:15→16:36)
[2016-04-12] MEDS: PRENATAL VITAMINS W/ FOLIC ACID TABLET (FP) PO SCH (09:49)
[2016-04-12] MEDS: cloNIDine HCL 0.1 MG TABLET PO SCH ×2 (09:50→21:13)
[2016-04-12] MEDS: HYDROCHLOROTHIAZIDE 25 MG TABLET (FP) PO SCH (09:50)
[2016-04-12] MEDS: ENALAPRIL MALEATE 5 MG TABLET (FP) PO SCH (09:50)
[2016-04-12] MEDS: hydrOXYzine PAMOATE 50 MG CAPSULE (FP) PO PRN ×2 (09:51→14:58)
[2016-04-12] MEDS: LIDOCAINE 5% TOPICAL PATCH TP SCH (09:52)
[2016-04-12] MEDS: CLOTRIMAZOLE/BETAMET DIPROP 15 GM TUBE TP SCH ×2 (09:52→21:13)
[2016-04-12] MEDS: THIAMINE HCL 100 MG TABLET (FP) PO SCH (21:13)
[2016-04-12] MEDS: diphenhydrAMINE HCL 50 MG CAPSULE PO PRN (21:13)
[2016-04-12] MEDS: QUEtiapine FUMARATE 50 MG TABLET PO SCH (21:14)
[2016-04-13] MEDS: INSULIN SLIDING SCALE (NOVOLOG) 1 VIAL SQ SCH ×2 (06:01→18:07)
[2016-04-13] MEDS: PRENATAL VITAMINS W/ FOLIC ACID TABLET (FP) PO SCH (10:23)
[2016-04-13] MEDS: ENALAPRIL MALEATE 5 MG TABLET (FP) PO SCH (10:24)
[2016-04-13] MEDS: HYDROCHLOROTHIAZIDE 25 MG TABLET (FP) PO SCH (10:24)
[2016-04-13] MEDS: cloNIDine HCL 0.1 MG TABLET PO SCH ×2 (10:24→21:20)
[2016-04-13] MEDS: LIDOCAINE 5% TOPICAL PATCH TP SCH (10:25)
[2016-04-13] MEDS: CLOTRIMAZOLE/BETAMET DIPROP 15 GM TUBE TP SCH ×2 (10:28→21:21)
[2016-04-13] MEDS: QUEtiapine FUMARATE 50 MG TABLET PO SCH (21:21)
[2016-04-13] MEDS: diphenhydrAMINE HCL 50 MG CAPSULE PO PRN (21:21)
[2016-04-13] MEDS: THIAMINE HCL 100 MG TABLET (FP) PO SCH (21:21)
[2016-04-14] MEDS: INSULIN SLIDING SCALE (NOVOLOG) 1 VIAL SQ SCH ×2 (06:22→16:41)
[2016-04-14] MEDS: ENALAPRIL MALEATE 5 MG TABLET (FP) PO SCH (10:19)
[2016-04-14] MEDS: PRENATAL VITAMINS W/ FOLIC ACID TABLET (FP) PO SCH (10:19)
[2016-04-14] MEDS: cloNIDine HCL 0.1 MG TABLET PO SCH ×2 (10:19→21:15)
[2016-04-14] MEDS: HYDROCHLOROTHIAZIDE 25 MG TABLET (FP) PO SCH (10:19)
[2016-04-14] MEDS: CLOTRIMAZOLE/BETAMET DIPROP 15 GM TUBE TP SCH ×2 (10:20→21:15)
[2016-04-14] MEDS: LIDOCAINE 5% TOPICAL PATCH TP SCH (10:20)
[2016-04-14] MEDS: hydrOXYzine PAMOATE 50 MG CAPSULE (FP) PO PRN (18:43)
[2016-04-14] MEDS: QUEtiapine FUMARATE 50 MG TABLET PO SCH (21:15)
[2016-04-14] MEDS: THIAMINE HCL 100 MG TABLET (FP) PO SCH (21:15)
[2016-04-15] MEDS: INSULIN SLIDING SCALE (NOVOLOG) 1 VIAL SQ SCH ×2 (06:57→17:15)
[2016-04-15] MEDS: PRENATAL VITAMINS W/ FOLIC ACID TABLET (FP) PO SCH (10:20)
[2016-04-15] MEDS: ENALAPRIL MALEATE 5 MG TABLET (FP) PO SCH (10:20)
[2016-04-15] MEDS: cloNIDine HCL 0.1 MG TABLET PO SCH ×2 (10:20→21:12)
[2016-04-15] MEDS: HYDROCHLOROTHIAZIDE 25 MG TABLET (FP) PO SCH (10:20)
[2016-04-15] MEDS: CLOTRIMAZOLE/BETAMET DIPROP 15 GM TUBE TP SCH ×2 (10:22→21:13)
[2016-04-15] MEDS: hydrOXYzine PAMOATE 50 MG CAPSULE (FP) PO PRN (12:17)
--- NOTE | 2016-04-15 13:30 | PN ---
S Progress Note (SOAP) Subjective: sores on penis Objective: 04/15/16 13:28 Vital Signs Temperature 97.2 F L 04/15/16 06:59 Pulse Rate 80 04/15/16 06:59 Respiratory Rate 18 04/15/16 06:59 Blood Pressure 123/83 04/15/16 06:59 O2 Sat by Pulse Oximetry (%) gu- shaft on penis small papules and ulcers Assessment: 04/15/16 13:29 genital herpes- reported previous episode 3 m ago 04/15/16 13:29 Plan: condom use valtrex bid
[2016-04-15] MEDS: valACYclovir HCL 500 MG TABLET (FP) PO SCH (21:12)
[2016-04-15] MEDS: diphenhydrAMINE HCL 50 MG CAPSULE PO PRN (21:13)
[2016-04-15] MEDS: THIAMINE HCL 100 MG TABLET (FP) PO SCH (21:13)
[2016-04-15] MEDS: QUEtiapine FUMARATE 50 MG TABLET PO SCH (21:13)
[2016-04-16] MEDS: INSULIN SLIDING SCALE (NOVOLOG) 1 VIAL SQ SCH ×2 (06:14→16:32)
[2016-04-16] MEDS ORDERED: INSULIN (NOVOLOG) ASPART 100 UNITS/ML 10ML VIAL ONE ×2 (06:15→16:29)
[2016-04-16] MEDS: ENALAPRIL MALEATE 5 MG TABLET (FP) PO SCH (10:15)
[2016-04-16] MEDS: HYDROCHLOROTHIAZIDE 25 MG TABLET (FP) PO SCH (10:15)
[2016-04-16] MEDS: PRENATAL VITAMINS W/ FOLIC ACID TABLET (FP) PO SCH (10:15)
[2016-04-16] MEDS: valACYclovir HCL 500 MG TABLET (FP) PO SCH ×2 (10:15→21:15)
[2016-04-16] MEDS: cloNIDine HCL 0.1 MG TABLET PO SCH ×2 (10:15→21:15)
[2016-04-16] MEDS: CLOTRIMAZOLE/BETAMET DIPROP 15 GM TUBE TP SCH ×2 (10:16→21:16)
--- NOTE | 2016-04-16 14:43 | PN ---
Psychiatric Progress Note Vital Signs: Vital Signs Period Temp Pulse Resp BP Sys/Pinon Pulse Ox Last 24 Hr 98.4 F 77-90 18-18 129-138/76-86 Date of Session: 04/16/16 Chief Complaint:: "Insomnia" HPI: The patient is addressing alcohol, opioid, cocaine, nicotine dependence comorbid substance induced sleep disorder ROS: HTN, Diabetes,. 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 (ambulates with unsteady gait with the cane) Current Medications: Active Medications Generic Name Dose Route Start Last Admin Trade Name Freq PRN Reason Stop Dose Admin Acetaminophen 650 mg 03/30/16 12:54 Tylenol - PO Q4H PRN FEVER OR PAIN Al Hydroxide/Mg Hydroxide 30 ml 03/30/16 12:54 Mylanta Oral Suspension - PO Q6H PRN DYSPEPSIA Clonidine 0.1 mg 03/30/16 22:00 04/16/16 10:15 Catapres - PO 0.1 mg BID AHMET Administration Clotrimazole 1 applic 04/07/16 22:00 04/16/16 10:16 Lotrisone Cream (Small Tube) TP 1 applic BID AHMET Administration Cyclobenzaprine HCl 10 mg 03/30/16 12:59 04/09/16 21:09 Flexeril - PO 10 mg TID PRN Administration MUSCLE SPASMS Diphenhydramine HCl 50 mg 03/30/16 12:54 04/15/16 21:13 Benadryl - PO 50 mg HSMR1 PRN Administration INSOMNIA Enalapril Maleate 5 mg 03/30/16 14:00 04/16/16 10:15 Vasotec - PO 5 mg DAILY AHMET Administration Eucalyptus/Menthol/Phenol/Sorbitol 1 each 03/30/16 12:54 Cepastat Lozenge - MM Q4H PRN SORE THROAT Guaifenesin 10 ml 03/30/16 12:54 Robitussin Dm - PO Q6H PRN COUGH Hydrochlorothiazide 25 mg 03/30/16 14:00 04/16/16 10:15 Hctz - PO 25 mg DAILY AHMET Administration Hydroxyzine Pamoate 50 mg 03/30/16 12:54 04/15/16 12:17 Vistaril - PO 50 mg Q4H PRN Administration AGITATION Ibuprofen 400 mg 03/30/16 12:54 04/09/16 21:09 Motrin - PO 400 mg Q6H PRN Administration SEVERE PAIN Insulin Aspart 1 vial 03/31/16 16:30 04/16/16 06:14 Novolog Vial Sliding Scale - SQ 2 unit BIDAC AHMET Administration Protocol Lidocaine 1 patch 04/14/16 12:38 Lidoderm Patch - TP DAILY PRN BACK PAIN Loperamide HCl 4 mg 03/30/16 12:54 Imodium - PO Q6H PRN DIARRHEA Magnesium Citrate 300 ml 03/30/16 12:54 Citroma - PO Q48H PRN CONSTIPATION Magnesium Hydroxide 30 ml 03/30/16 12:54 Milk Of Magnesia - PO DAILY PRN CONSTIPATION Multivit/Folic Acid/Iron 1 tab 03/31/16 10:00 04/16/16 10:15 Vitamins (Sjr) - PO 1 tab DAILY AHMET Administration Pseudoephedrine/Triprolidine 1 combo 03/30/16 12:54 Actifed - PO TID PRN NASAL CONGESTION Quetiapine Fumarate 100 mg 04/16/16 22:00 Seroquel - PO HS AHMET Thiamine HCl 100 mg 03/30/16 22:00 04/15/16 21:13 Vitamin B1 - PO 100 mg HS AHMET Administration Valacyclovir HCl 500 mg 04/15/16 22:00 04/16/16 10:15 Valtrex - PO 04/22/16 21:59 500 mg BID AHMET Administration Medication(s) Change(s): increase Seroquel 100 mg po hs. Current Side Effect: No Lab tests ordered: No Lab tests reviewed: Yes Provider note:: Patient reports that Seroquel worked "only for 2 nights, I have dreams", sttes his sleep is "superficial", he is fatiqued next day, states ivanna on 100 mg po hs of Seroquel, will adjust medication and continue to monitor progress. Total face to face time:: 15 Mental Status Exam - Mental Status Exam Alert and Oriented to: Time, Place, Person Cognitive Function: Good Patient Appearance: Well Groomed Mood: Irritable Affect: Appropriate, Mood Congruent Patient Behavior: Appropriate, Cooperative Speech Pattern: Clear, Appropriate Voice Loudness: Normal Thought Process: Goal Oriented Thought Disorder: Not Present Hallucinations: Denies Suicidal Ideation: Denies Homicidal Ideation: Denies Insight/Judgement: Fair Sleep: Poorly, Difficulty falling asleep Appetite: Good Gait/Station: Other Psychiatric Treatment Plan - Problem List (1) Cocaine dependence Current Visit: Yes (2) Essential hypertension Current Visit: Yes (3) Alcohol dependence Current Visit: Yes (4) Opioid dependence Current Visit: No Comment: \\. (5) Insomnia Current Visit: Yes (6) Substance-induced sleep disorder Current Visit: Yes
[2016-04-16] MEDS: hydrOXYzine PAMOATE 50 MG CAPSULE (FP) PO PRN (16:30)
[2016-04-16] MEDS: QUEtiapine FUMARATE 100 MG TABLET (FP) PO SCH (21:15)
[2016-04-16] MEDS: THIAMINE HCL 100 MG TABLET (FP) PO SCH (21:15)
[2016-04-17] MEDS: INSULIN SLIDING SCALE (NOVOLOG) 1 VIAL SQ SCH ×2 (06:08→17:09)
[2016-04-17] MEDS: PRENATAL VITAMINS W/ FOLIC ACID TABLET (FP) PO SCH (10:16)
[2016-04-17] MEDS: HYDROCHLOROTHIAZIDE 25 MG TABLET (FP) PO SCH (10:16)
[2016-04-17] MEDS: valACYclovir HCL 500 MG TABLET (FP) PO SCH ×2 (10:16→21:12)
[2016-04-17] MEDS: cloNIDine HCL 0.1 MG TABLET PO SCH ×2 (10:16→21:12)
[2016-04-17] MEDS: ENALAPRIL MALEATE 5 MG TABLET (FP) PO SCH (10:16)
[2016-04-17] MEDS: LIDOCAINE 5% TOPICAL PATCH TP PRN (10:17)
[2016-04-17] MEDS: CLOTRIMAZOLE/BETAMET DIPROP 15 GM TUBE TP SCH ×2 (10:17→21:13)
[2016-04-17] MEDS: QUEtiapine FUMARATE 100 MG TABLET (FP) PO SCH (21:12)
[2016-04-17] MEDS: THIAMINE HCL 100 MG TABLET (FP) PO SCH (21:12)
[2016-04-18] MEDS: INSULIN SLIDING SCALE (NOVOLOG) 1 VIAL SQ SCH ×2 (06:25→16:55)
[2016-04-18] MEDS: PRENATAL VITAMINS W/ FOLIC ACID TABLET (FP) PO SCH (10:02)
[2016-04-18] MEDS: ENALAPRIL MALEATE 5 MG TABLET (FP) PO SCH (10:03)
[2016-04-18] MEDS: valACYclovir HCL 500 MG TABLET (FP) PO SCH ×2 (10:03→21:27)
[2016-04-18] MEDS: cloNIDine HCL 0.1 MG TABLET PO SCH ×2 (10:03→21:28)
[2016-04-18] MEDS: LIDOCAINE 5% TOPICAL PATCH TP PRN (10:03)
[2016-04-18] MEDS: CLOTRIMAZOLE/BETAMET DIPROP 15 GM TUBE TP SCH ×2 (10:03→21:28)
[2016-04-18] MEDS: HYDROCHLOROTHIAZIDE 25 MG TABLET (FP) PO SCH (10:03)
[2016-04-18] MEDS: QUEtiapine FUMARATE 100 MG TABLET (FP) PO SCH (21:27)
[2016-04-18] MEDS: THIAMINE HCL 100 MG TABLET (FP) PO SCH (21:28)
[2016-04-18] MEDS: CYCLOBENZAPRINE HCL 10 MG TABLET (FP) PO PRN (21:29)
[2016-04-19] MEDS: INSULIN SLIDING SCALE (NOVOLOG) 1 VIAL SQ SCH ×2 (07:04→16:52)
[2016-04-19] MEDS: PRENATAL VITAMINS W/ FOLIC ACID TABLET (FP) PO SCH (10:03)
[2016-04-19] MEDS: HYDROCHLOROTHIAZIDE 25 MG TABLET (FP) PO SCH (10:03)
[2016-04-19] MEDS: ENALAPRIL MALEATE 5 MG TABLET (FP) PO SCH (10:03)
[2016-04-19] MEDS: CLOTRIMAZOLE/BETAMET DIPROP 15 GM TUBE TP SCH ×2 (10:03→21:16)
[2016-04-19] MEDS: valACYclovir HCL 500 MG TABLET (FP) PO SCH ×2 (10:03→21:15)
[2016-04-19] MEDS: cloNIDine HCL 0.1 MG TABLET PO SCH ×2 (10:03→21:15)
[2016-04-19] MEDS: THIAMINE HCL 100 MG TABLET (FP) PO SCH (21:15)
[2016-04-19] MEDS: QUEtiapine FUMARATE 100 MG TABLET (FP) PO SCH (21:15)
[2016-04-20] MEDS: INSULIN SLIDING SCALE (NOVOLOG) 1 VIAL SQ SCH ×2 (06:11→16:37)
[2016-04-20] MEDS: ENALAPRIL MALEATE 5 MG TABLET (FP) PO SCH (10:03)
[2016-04-20] MEDS: HYDROCHLOROTHIAZIDE 25 MG TABLET (FP) PO SCH (10:03)
[2016-04-20] MEDS: PRENATAL VITAMINS W/ FOLIC ACID TABLET (FP) PO SCH (10:03)
[2016-04-20] MEDS: cloNIDine HCL 0.1 MG TABLET PO SCH ×2 (10:03→21:15)
[2016-04-20] MEDS: CLOTRIMAZOLE/BETAMET DIPROP 15 GM TUBE TP SCH ×2 (10:03→21:15)
[2016-04-20] MEDS: valACYclovir HCL 500 MG TABLET (FP) PO SCH ×2 (10:03→21:15)
[2016-04-20] MEDS ORDERED: INSULIN (NOVOLOG) ASPART 100 UNITS/ML 10ML VIAL ONE (16:37)
[2016-04-20] MEDS: QUEtiapine FUMARATE 100 MG TABLET (FP) PO SCH (21:15)
[2016-04-20] MEDS: THIAMINE HCL 100 MG TABLET (FP) PO SCH (21:15)
[2016-04-21] MEDS: INSULIN SLIDING SCALE (NOVOLOG) 1 VIAL SQ SCH ×2 (06:13→17:12)
[2016-04-21] MEDS: valACYclovir HCL 500 MG TABLET (FP) PO SCH ×2 (10:31→21:27)
[2016-04-21] MEDS: PRENATAL VITAMINS W/ FOLIC ACID TABLET (FP) PO SCH (10:31)
[2016-04-21] MEDS: CLOTRIMAZOLE/BETAMET DIPROP 15 GM TUBE TP SCH ×2 (10:32→21:27)
[2016-04-21] MEDS: cloNIDine HCL 0.1 MG TABLET PO SCH ×2 (10:32→21:27)
[2016-04-21] MEDS: ENALAPRIL MALEATE 5 MG TABLET (FP) PO SCH (10:32)
[2016-04-21] MEDS: HYDROCHLOROTHIAZIDE 25 MG TABLET (FP) PO SCH (10:32)
[2016-04-21] MEDS ORDERED: INSULIN (NOVOLOG) ASPART 100 UNITS/ML 10ML VIAL ONE (17:11)
[2016-04-21] MEDS: THIAMINE HCL 100 MG TABLET (FP) PO SCH (21:27)
[2016-04-21] MEDS: QUEtiapine FUMARATE 100 MG TABLET (FP) PO SCH (21:27)
[2016-04-22] MEDS: INSULIN SLIDING SCALE (NOVOLOG) 1 VIAL SQ SCH ×2 (06:09→16:47)
[2016-04-22] MEDS ORDERED: INSULIN (NOVOLOG) ASPART 100 UNITS/ML 10ML VIAL ONE (06:37)
[2016-04-22] MEDS: HYDROCHLOROTHIAZIDE 25 MG TABLET (FP) PO SCH (10:09)
[2016-04-22] MEDS: ENALAPRIL MALEATE 5 MG TABLET (FP) PO SCH (10:09)
[2016-04-22] MEDS: cloNIDine HCL 0.1 MG TABLET PO SCH ×2 (10:09→21:10)
[2016-04-22] MEDS: PRENATAL VITAMINS W/ FOLIC ACID TABLET (FP) PO SCH (10:09)
[2016-04-22] MEDS: valACYclovir HCL 500 MG TABLET (FP) PO SCH (10:09)
[2016-04-22] MEDS: CLOTRIMAZOLE/BETAMET DIPROP 15 GM TUBE TP SCH ×2 (10:11→21:10)
[2016-04-22] MEDS: QUEtiapine FUMARATE 100 MG TABLET (FP) PO SCH (21:09)
[2016-04-22] MEDS: THIAMINE HCL 100 MG TABLET (FP) PO SCH (21:10)
[2016-04-23] MEDS: INSULIN SLIDING SCALE (NOVOLOG) 1 VIAL SQ SCH ×2 (06:14→16:49)
[2016-04-23] MEDS: PRENATAL VITAMINS W/ FOLIC ACID TABLET (FP) PO SCH (10:11)
[2016-04-23] MEDS: HYDROCHLOROTHIAZIDE 25 MG TABLET (FP) PO SCH (10:11)
[2016-04-23] MEDS: cloNIDine HCL 0.1 MG TABLET PO SCH ×2 (10:12→21:06)
[2016-04-23] MEDS: ENALAPRIL MALEATE 5 MG TABLET (FP) PO SCH (10:12)
[2016-04-23] MEDS: CLOTRIMAZOLE/BETAMET DIPROP 15 GM TUBE TP SCH ×2 (10:14→21:09)
[2016-04-23] MEDS: diphenhydrAMINE HCL 50 MG CAPSULE PO PRN (21:07)
[2016-04-23] MEDS: THIAMINE HCL 100 MG TABLET (FP) PO SCH (21:07)
[2016-04-23] MEDS: QUEtiapine FUMARATE 100 MG TABLET (FP) PO SCH (21:07)
[2016-04-24] MEDS: INSULIN SLIDING SCALE (NOVOLOG) 1 VIAL SQ SCH (06:50)
[2016-04-24 07:08] VITALS: BP 135/86; PULSE 78; TEMP 98.4
--- NOTE | 2016-04-24 10:09 | PN ---
Psychiatric Progress Note Vital Signs: Vital Signs Period Temp Pulse Resp BP Sys/Pinon Pulse Ox Last 24 Hr 98.4 F 78 18-18 135/86 Date of Session: 04/24/16 Chief Complaint:: discharge visit HPI: The patient has addressed alcohol, opioid, cocaine, nicotine dependence comorbid substance induced sleep disorder. ROS: HTN, Diabetes,. 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 (ambulates with unsteady gait with the cane) Current Medications: Active Medications Generic Name Dose Route Start Last Admin Trade Name Freq PRN Reason Stop Dose Admin Acetaminophen 650 mg 03/30/16 12:54 Tylenol - PO Q4H PRN FEVER OR PAIN Al Hydroxide/Mg Hydroxide 30 ml 03/30/16 12:54 Mylanta Oral Suspension - PO Q6H PRN DYSPEPSIA Clonidine 0.1 mg 03/30/16 22:00 04/23/16 21:06 Catapres - PO 0.1 mg BID AHMET Administration Clotrimazole 1 applic 04/07/16 22:00 04/23/16 21:09 Lotrisone Cream (Small Tube) TP 1 applic BID AHMET Administration Cyclobenzaprine HCl 10 mg 03/30/16 12:59 04/18/16 21:29 Flexeril - PO 10 mg TID PRN Administration MUSCLE SPASMS Diphenhydramine HCl 50 mg 03/30/16 12:54 04/23/16 21:07 Benadryl - PO 50 mg HSMR1 PRN Administration INSOMNIA Enalapril Maleate 5 mg 03/30/16 14:00 04/23/16 10:12 Vasotec - PO 5 mg DAILY AHMET Administration Eucalyptus/Menthol/Phenol/Sorbitol 1 each 03/30/16 12:54 Cepastat Lozenge - MM Q4H PRN SORE THROAT Guaifenesin 10 ml 03/30/16 12:54 Robitussin Dm - PO Q6H PRN COUGH Hydrochlorothiazide 25 mg 03/30/16 14:00 04/23/16 10:11 Hctz - PO 25 mg DAILY AHMET Administration Hydroxyzine Pamoate 50 mg 03/30/16 12:54 04/16/16 16:30 Vistaril - PO 50 mg Q4H PRN Administration AGITATION Ibuprofen 400 mg 03/30/16 12:54 04/09/16 21:09 Motrin - PO 400 mg Q6H PRN Administration SEVERE PAIN Insulin Aspart 1 vial 03/31/16 16:30 04/24/16 06:50 Novolog Vial Sliding Scale - SQ Not Given BIDAC [facility] Protocol Lidocaine 1 patch 04/14/16 12:38 04/18/16 10:03 Lidoderm Patch - TP 1 patch DAILY PRN Administration BACK PAIN Loperamide HCl 4 mg 03/30/16 12:54 Imodium - PO Q6H PRN DIARRHEA Magnesium Citrate 300 ml 03/30/16 12:54 Citroma - PO Q48H PRN CONSTIPATION Magnesium Hydroxide 30 ml 03/30/16 12:54 Milk Of Magnesia - PO DAILY PRN CONSTIPATION Multivit/Folic Acid/Iron 1 tab 03/31/16 10:00 04/23/16 10:11 Vitamins (Sjr) - PO 1 tab DAILY AHMET Administration Pseudoephedrine/Triprolidine 1 combo 03/30/16 12:54 Actifed - PO TID PRN NASAL CONGESTION Quetiapine Fumarate 100 mg 04/16/16 22:00 04/23/16 21:07 Seroquel - PO 100 mg HS AHMET Administration Thiamine HCl 100 mg 03/30/16 22:00 04/23/16 21:07 Vitamin B1 - PO 100 mg HS AHMET Administration Current Side Effect: No Lab tests ordered: No Lab tests reviewed: Yes Provider note:: Patient has completed today htis inpatient rehabilitation treatment and met his goals, will continue to address his issues at inpatient rehabilitation treatment program [place]. Patient reports Seroquel was effective in terms of mood stabilization and sleep improvement, discussed indications and properties of medication with the patient, psychoeducation provided, importance of continue abstinence, compliance with treatment and be adherent to aftercare plans discussed with the patient, he verbalized understanding. Patient is stable for discharge today. Total face to face time:: 35 Mental Status Exam - Mental Status Exam Alert and Oriented to: Time, Place, Person Cognitive Function: Good Patient Appearance: Well Groomed Mood: Hopeful Affect: Mood Congruent Patient Behavior: Appropriate, Cooperative Speech Pattern: Clear Voice Loudness: Normal Thought Process: Intact Thought Disorder: Present Hallucinations: Denies Suicidal Ideation: Denies Homicidal Ideation: Denies Insight/Judgement: Fair Sleep: Fair Appetite: Fair Muscle strength/Tone: Normal Gait/Station: Normal Psychiatric Treatment Plan - Problem List (1) Cocaine dependence Current Visit: Yes (2) Essential hypertension Current Visit: Yes (3) Alcohol dependence Current Visit: Yes (4) Opioid dependence Current Visit: No Comment: \. (5) Insomnia Current Visit: Yes (6) Substance-induced sleep disorder Current Visit: Yes
[2016-04-24] MEDS: cloNIDine HCL 0.1 MG TABLET PO SCH (10:19)
[2016-04-24] MEDS: HYDROCHLOROTHIAZIDE 25 MG TABLET (FP) PO SCH (10:19)
[2016-04-24] MEDS: CLOTRIMAZOLE/BETAMET DIPROP 15 GM TUBE TP SCH (10:19)
[2016-04-24] MEDS: PRENATAL VITAMINS W/ FOLIC ACID TABLET (FP) PO SCH (10:19)
[2016-04-24] MEDS: ENALAPRIL MALEATE 5 MG TABLET (FP) PO SCH (10:19)
== END 2016-04-24 11:15 | disposition home or self-care (01) | DRG 895 ==
LOC: YASAS 10:46 → Y3N 12:54 → Y5N 04-04 11:23
PROVIDERS: ADMIT Internal Medicine; ATTEND Psychiatry & Neurology Psychiatry
PROC: HZ42ZZZ Group Counseling for Substance Abuse Treatment, Cognitive-Behavioral (ICD-10-PCS; principal; 2016-04-24)
DX: F11.23 Opioid dependence with withdrawal (principal); F14.20 Cocaine dependence, uncomplicated; F19.282 Other psychoactive substance dependence with psychoactive substance-induced sleep disorder; F10.230 Alcohol dependence with withdrawal, uncomplicated; F17.210 Nicotine dependence, cigarettes, uncomplicated; G47.00 Insomnia, unspecified; I10 Essential (primary) hypertension; E11.9 Type 2 diabetes mellitus without complications; Z79.4 Long term (current) use of insulin; Z96.642 Presence of left artificial hip joint; Z59.0 Homelessness
CPT/HCPCS: 36415; 80053; 81003; 85027; 86593; 87389; 93005; 93010